=== PATIENT | female | born 1990 | race Caucasian/White ===

== ENCOUNTER 2022-05-29 17:52 | Emergency (ER) | payer MEDICAID, SELFPAY ==
--- NOTE | 2022-05-29 | ECG_ITS ---
Test Reason : SOB Blood Pressure : / mmHG Vent. Rate : 093 BPM Atrial Rate : 093 BPM P-R Int : 150 ms QRS Dur : 078 ms QT Int : 380 ms P-R-T Axes : 025 020 001 degrees QTc Int : 472 ms Normal sinus rhythm Normal ECG No previous ECGs available Referred By: Generic ED Physician Electronically Signed By:MARLENE FOREMAN
--- NOTE | ~2022-05-29 | XR_ITS ---
EXAMINATION: XR CHEST CLINICAL INFORMATION: Shortness of breath COMPARISON: None TECHNIQUE: Frontal view of the chest was obtained. FINDINGS: No significant abnormality is noted involving the heart, lungs, mediastinum, bony thorax or soft tissues. XR/XR chest 1V IMPRESSION: Unremarkable examination.
[2022-05-29 18:01] VITALS: BP 180/124; PULSE 114; RESP 18; TEMP 37; O2SAT 97; BMI 42.1
[2022-05-29 20:29] LABS: MANUAL DIFF FLAG NO
[2022-05-29 20:30] LABS: Basophils Absolute Auto 0.1 X10*3/uL (0.0-0.2); Basophils Percent Auto 0.4 % (0-2); Eosinophils Absolute Auto 0.4 X10*3/uL (0.0-0.4); Hematocrit 42.9 % (37.0-47.0); Hemoglobin 15.3 g/dl (12.0-16.0); Imm Gran Abs Auto 0.09 X10*3/uL (0.00-0.03); Imm Gran Pct Auto 0.5 % (0.0-0.4); Lymphocytes Absolute Auto 3.3 X10*3/uL (1.2-4.9); Mean Corpuscular HGB Conc 35.7 g/dl (31.0-35.0); Mean Corpuscular Hemoglobin 30.8 pg (27.0-33.0); Mean Corpuscular Volume 86.3 fL (80.0-98.0); Mean Platelet Volume 8.6 fL (9.4-12.3); Monocytes Absolute Auto 1.2 X10*3/uL (0.1-1.2); Monocytes Percent Auto 6.6 % (2-11); Neutrophils Absolute Auto 13.2 x10*3/uL (2.0-8.3); Neutrophils Percent Auto 72.5 % (45-73); Platelet Count 452 X10*3/uL (160-400); Red Blood Count 4.97 X10*6/uL (4.20-5.50); Red Cell Distribution Width 13.6 % (11.0-16.0); White Blood Count 18.2 X10*3/uL (4.8-10.8)
[2022-05-29 20:55] LABS: Alanine Aminotransferase 27 U/L (0-31); Albumin Level 4.3 g/dL (3.5-5.0); Alkaline Phosphatase 134 U/L (39-117); Anion Gap 13 (12-20); Aspartate Amino Transferase 16 U/L (5-31); Bilirubin Total 0.3 mg/dL (0.0-1.0); Blood Urea Nitrogen 9 mg/dL (9-16); Calcium 9.7 mg/dL (8.4-10.2); Carbon Dioxide 27 mmol/L (22-29); Chloride 105 mmol/L (96-108); Creatinine Clr Calc Pharmacy 99.2; Estimated Glomerular Filt Rate > 60; Glucose Random 100 mg/dL (60-115); Lipase 124 U/L (8-78); Potassium 3.4 mmol/L (3.3-5.1); Sodium 142 mmol/L (135-145); Total Protein 7.6 g/dL (6.5-8.0)
[2022-05-29 21:09] LABS: Influenza A PCR NEGATIVE (Negative); Influenza B PCR NEGATIVE (Negative); Resp Syncy Virus RNA Qual PCR NEGATIVE (Negative); SARS COV2 PCR INHOUSE NEGATIVE (Negative)
--- NOTE | 2022-05-29 22:16 | ED.URI ---
HPI - URI/Sore Throat General Chief Complaint: Upper Respiratory Symptoms Stated Complaint: respritory issues/high BP Time Seen by Provider: 05/29/22 17:59 Source: patient Mode of arrival: ambulatory Limitations: no limitations History of Present Illness HPI Narrative: 32-year-old female who presents emergency department for evaluation of headache, dizziness, cough, chest pain, shortness of breath, nausea and vomiting x4 days. Patient was initially seen at the [facility] and referred to the emergency department for evaluation. The patient states she has been sick for 4 days. She states she has a cough which is persistent and productive of thick green sputum. She states that she is experiencing chest pain. She points to her mid sternum when asked to localize the pain. The pain is present with coughing only and is a sharp pain which is 10/10. She also feels short of breath and has short this of breath with exertion. She states that she can also hear herself wheezing and she does not have asthma. Patient states that she has had persistent nausea and has had emesis 2 times per day with past 4 days. Patient is also complaining of a headache. She points to her temporal and frontal area as well as the top of her head when asked to localize the headache. She states the headache is been constant for 4 days, the headache is sharp and is 10/10. The headache is worse with coughing. Patient does have a history of hypertension states she is compliant with her hydrochlorothiazide. She states she is not check her blood pressure on a regular basis. Review of systems positive for chills, nasal congestion, diaphoresis. MD elicited complaint: cough Onset (ago): day(s) (4) Consistency: constant and progressively worsening Severity: moderate Description of mucous: green (Thick) Able to tolerate fluids by mouth: Yes Exacerbating factors: deep breaths Relieving factors: nothing Associated symptoms: chills, diaphoresis, headache, nasal congestion, chest pain, shortness of breath, nausea, vomiting and diarrhea Treatments prior to arrival: none Related Data Previous Rx's Medication Instructions Recorded albuterol sulfate 90 mcg/actuation 2 puff inhalation Q4-6H PRN 05/30/22 aerosol inhaler (ProAir HFA) shortness of breath or wheezing #8.5 grams azithromycin 250 mg tablet See Rx Instructions PO .COMPLEX #6 05/30/22 (Zithromax Z-Alex) tabs lisinopril 10 mg tablet 10 mg PO DAILY 30 days #30 tabs 05/30/22 metoclopramide HCl 10 mg tablet 10 mg PO Q6H PRN nausea and 05/30/22 (Reglan) vomiting #14 tabs prednisone 20 mg tablet 60 mg PO DAILY 5 days #15 tabs 05/30/22 Allergies Allergy/AdvReac Type Severity Reaction Status Date / Time No Known Allergies [NKA] Allergy Mild NOT Verified 05/29/22 18:00 APPLICABLE Review of Systems Review of Systems: Yes all other systems are reviewed and are negative [facility] Past Medical History [facility] Narrative: Past medical history: Hypertension, seasonal allergies, GERD, depression. Social history: Patient denies tobacco use. She occasionally drinks alcohol. She smokes marijuana 3 times a week. Social History Social History Advance Directives: No Advance Directives Information Provided: No Physical Exam Vital Signs: Vital Signs: Last Vital Signs Temp 98.6 F 05/29/22 18:01 Pulse 90 05/29/22 23:58 Resp 18 05/29/22 23:58 BP 163/92 H 05/29/22 23:58 Pulse Ox 97 05/29/22 23:58 O2 Del Method 05/29/22 23:58 BMI result Body Mass Index 42.1 Const: Other: Awake, alert, female patient, very pleasant and cooperative, she does have a very persistent productive sounding cough, she is able answer all questions in full sentences without any difficulty, she has an elevated BMI of 42.2. HEENT: Head: Yes normal to inspection, Yes normocephalic and Yes atraumatic Ears: external ears normal General nose exam: Normal external nose present Face and sinus: Yes normal facial exam Mouth: Normal oral and palatal mucosa present Throat: Yes posterior oropharynx normal Eyes: General: appearance normal, both eyes and all related structures Pupils: Equal, round and reactive pupils present Neck: Neck: Yes normal visual inspection, Yes no lymphadenopathy, Yes trachea midline and Yes supple Chest: Chest palpation & inspection: normal inspection of the chest and tenderness sternum Resp: Other: Patient has normal respiratory rate, she has diffuse wheezing, no rales or rhonchi, breath sounds are symmetric bilaterally Cardio: Rate: regular rate Rhythm: regular rhythm Heart sounds: S1 normal heart sound present, S2 normal heart sound present and no murmurs GI: Inspection: Yes normal to inspection Palpation (GI): Soft to palpation, nontender and no guarding Auscultation: normal bowel sounds : General: Yes no CVA tenderness Back/Spine/Pelvis: Back: no CVA tenderness Skin: General skin exam: no rashes or lesions noted Neuro: Cranial nerves: Yes CN's II-XII intact bilaterally and Yes Equal, round and reactive pupils present Cognition (Neuro): normal cognition Motor exam (neuro): 5/5 motor strength present throughout Extrem: General: Yes normal to inspection Psych: Appearance: grossly normal Speech and movement: Normal speech and movement present Affect: normal affect Attitude: cooperative Thought process: Normal thought process present Thought content: Normal thought content present Course Course Course Narrative: 32-year-old female who presents emergency department for evaluation chills, nasal congestion, persistent cough, nausea, vomiting, diarrhea, chest pain and headache x4 days. Patient's vital signs did reveal an elevated blood pressure of 180/124 and elevated pulse of 114. Physical examination did revealed sternal chest wall tenderness, wheezing on her lung exam, normal neurologic exam. Patient had a laboratory evaluation [place] [address], elevated alk-phos 135 an elevated lipase of 124. Chest x-ray revealed no evidence for pneumonia. I did add a troponin and EKG to the patient's evaluation. My impression is that the patient has an acute upper respiratory infection/bronchitis causing her wheezing and her other symptoms. The patient does have an elevated blood pressure but I think that this is consistent with her essential hypertension I do not think that she has hypertensive urgency/emergency. I will treat the patient's headache and other symptoms with Toradol 15 mg IV, Reglan 10 mg IV and Benadryl 50 mg IV. She was also ordered to get normal saline x1 L. 0047: Patient's COVID-19, influenza and RSV tests were negative. The patient is feeling significantly better after the above treatment. Patient will be treated for bronchitis with bronchospasm with prednisone 60 mg once a day for 5 days and Zithromax Z-Alex. She was also advised to use the albuterol inhaler 2 puffs every 4-6 hours as needed for wheezing. Patient was also given prescription for Reglan 10 mg to be taken with Benadryl and Excedrin migraine every 6 hours as needed. MDM - URI/Sore Throat Lab Data Result diagrams: 05/29/22 20:20 05/29/22 20:20 Labs: Lab Results 05/29/22 05/29/22 05/29/22 Range/Units 20:20 20:20 20:20 WBC 18.2 H (4.8-10.8) X10*3/uL RBC 4.97 (4.20-5.50) X10*6/uL Hgb 15.3 (12.0-16.0) g/dl Hct 42.9 (37.0-47.0) % MCV 86.3 (80.0-98.0) fL MCH 30.8 (27.0-33.0) pg MCHC 35.7 H (31.0-35.0) g/dl RDW 13.6 (11.0-16.0) % Plt Count 452 H (160-400) X10*3/uL MPV 8.6 L (9.4-12.3) fL Immature Gran % (Auto) 0.5 H (0.0-0.4) % Neut % (Auto) 72.5 (45-73) % Lymph % (Auto) 18.0 L (20-40) % [place] % (Auto) 6.6 (2-11) % Eos % (Auto) 2.0 (0-4) % Baso % (Auto) 0.4 (0-2) % Lymph # (Auto) 3.3 (1.2-4.9) X10*3/uL [place] # (Auto) 1.2 (0.1-1.2) X10*3/uL Eos # (Auto) 0.4 (0.0-0.4) X10*3/uL Baso # (Auto) 0.1 (0.0-0.2) X10*3/uL Abs Immat Gran (auto) 0.09 H (0.00-0.03) X10*3/uL Absolute Neuts (auto) 13.2 H (2.0-8.3) x10*3/uL Absolute Nucleated RBC 0.000 (0.0-0.012) X10*3/uL Nucleated RBC % (auto) 0.0 (0.0-0.2) /100WBC Sodium 142 (135-145) mmol/L Potassium 3.4 (3.3-5.1) mmol/L Chloride 105 (96-108) mmol/L Carbon Dioxide 27 (22-29) mmol/L Anion Gap 13 (12-20) BUN 9 (9-16) mg/dL Creatinine 0.88 (0.5-1.4) mg/dL Estim Creat Clear Calc 99.2 Estimated GFR > 60 Random Glucose 100 (60-115) mg/dL Calcium 9.7 (8.4-10.2) mg/dL Magnesium 2.0 (1.6-2.6) mg/dL Total Bilirubin 0.3 (0.0-1.0) mg/dL AST 16 (5-31) U/L ALT 27 (0-31) U/L Alkaline Phosphatase 134 H (39-117) U/L Troponin I High Sens (<3.5-17.0) ng/L Total Protein 7.6 (6.5-8.0) g/dL Albumin 4.3 (3.5-5.0) g/dL Lipase 124 H (8-78) U/L Influenza Type A (PCR) NEGATIVE (Negative) Influenza Type B (PCR) NEGATIVE (Negative) RSV RNA Qual (PCR) NEGATIVE (Negative) SARS-CoV-2 RNA (RT-PCR) NEGATIVE (Negative) 05/29/22 Range/Units 20:20 WBC (4.8-10.8) X10*3/uL RBC (4.20-5.50) X10*6/uL Hgb (12.0-16.0) g/dl Hct (37.0-47.0) % MCV (80.0-98.0) fL MCH (27.0-33.0) pg MCHC (31.0-35.0) g/dl RDW (11.0-16.0) % Plt Count (160-400) X10*3/uL MPV (9.4-12.3) fL Immature Gran % (Auto) (0.0-0.4) % Neut % (Auto) (45-73) % Lymph % (Auto) (20-40) % [place] % (Auto) (2-11) % Eos % (Auto) (0-4) % Baso % (Auto) (0-2) % Lymph # (Auto) (1.2-4.9) X10*3/uL [place] # (Auto) (0.1-1.2) X10*3/uL Eos # (Auto) (0.0-0.4) X10*3/uL Baso # (Auto) (0.0-0.2) X10*3/uL Abs Immat Gran (auto) (0.00-0.03) X10*3/uL Absolute Neuts (auto) (2.0-8.3) x10*3/uL Absolute Nucleated RBC (0.0-0.012) X10*3/uL Nucleated RBC % (auto) (0.0-0.2) /100WBC Sodium (135-145) mmol/L Potassium (3.3-5.1) mmol/L Chloride (96-108) mmol/L Carbon Dioxide (22-29) mmol/L Anion Gap (12-20) BUN (9-16) mg/dL Creatinine (0.5-1.4) mg/dL Estim Creat Clear Calc Estimated GFR Random Glucose (60-115) mg/dL Calcium (8.4-10.2) mg/dL Magnesium (1.6-2.6) mg/dL Total Bilirubin (0.0-1.0) mg/dL AST (5-31) U/L ALT (0-31) U/L Alkaline Phosphatase (39-117) U/L Troponin I High Sens < 3.5 (<3.5-17.0) ng/L Total Protein (6.5-8.0) g/dL Albumin (3.5-5.0) g/dL Lipase (8-78) U/L Influenza Type A (PCR) (Negative) Influenza Type B (PCR) (Negative) RSV RNA Qual (PCR) (Negative) SARS-CoV-2 RNA (RT-PCR) (Negative) Discharge Plan Discharge Clinical Impression: Acute bronchitis with bronchospasm, Essential hypertension Headache Qualifiers: Headache chronicity pattern: acute headache Intractability: not intractable Patient Disposition: Home, Self-Care Instructions: Acute Bronchitis (ED) Additional Instructions: Your laboratory evaluation did reveal an elevated white blood cell count otherwise was unremarkable. Your chest x-ray revealed no evidence of pneumonia Your COVID-19, influenza and RSV tests were all negative. Your presentation is consistent with infection/inflammation of your breathing to and spasm of your breathing tubes (bronchitis with bronchospasm) Medications for bronchitis and headache Take prednisone 20 mg pills, 3 pills once a day for 5 days. While you are taking prednisone, do not take any NSAIDs (Motrin, Advil, ibuprofen, Aleve, naproxen). Take Zithromax (azithromycin) Z-Alex as prescribed. Day 1 take 2 pills, each day after that take 1 pill for total of 5 days. This medication states in your system for 7-10 days and continues to work despite only taking it for 5 days. Use the albuterol inhaler, 2 puffs every 4-6 hours as needed for shortness of breath and wheezing. I want you to take the following 3 medications together every 6 hours as needed for headache, nausea or vomiting. Reglan (metoclopramide) in 10 mg, 1 pill Benadryl 25 mg, 2 pills Excedrin migraine, 1pill. After you take these medications, lie down in a dark quiet room and try to fall asleep. These medications will make you sleepy, do not drive or work after taking these medications. Follow-up with your doctor in 2 days. High blood pressure instructions: Your blood pressure in the emergency room today was high at 184/124 and 163/92. Continue taking your hydrochlorothiazide. Start lisinopril 10 mg once a day The reason to check your blood pressure at home is to give your doctor an idea of what your blood pressure does when you are not in the doctor's office. Take your blood pressure in the mornings, Mondays , Wednesdays and Fridays and then write down these readings to discuss them with your doctor at your next visit. It often 1-2 months or longer to get your blood pressure under control. The goal is to get your blood pressure under control over the rest of your life to prevent increased risk of heart disease, stroke and kidney failure. Follow-up with your doctor to discuss your blood pressure readings in 2 weeks Follow-up instructions: Follow-up with your doctor in 2 days. Please return to the emergency department if your symptoms get worse or if you develop any symptoms that are concerning to you. Please see the work note Prescriptions: New azithromycin [Zithromax Z-Alex] 250 mg tablet See Rx Instructions .ROUTE .COMPLEX Qty: 6 0RF Rx Instructions: take 500 mg today (day 1), then 250 mg for 4 days (days 2-5) prednisone 20 mg tablet 60 mg PO DAILY 5 Days Qty: 15 0RF metoclopramide HCl [Reglan] 10 mg tablet 10 mg PO Q6H PRN (Reason: nausea and vomiting) Qty: 14 0RF lisinopril 10 mg tablet 10 mg PO DAILY 30 Days Qty: 30 0RF albuterol sulfate [ProAir HFA] 90 mcg/actuation HFA aerosol inhaler 2 puff inhalation Q4-6H PRN (Reason: shortness of breath or wheezing) Qty: 8.5 0RF Stand Alone Forms: Work/School Release
[2022-05-29] MEDS: 0.9 % Sodium Chloride 1,000 ML 999 ML IV (22:36)
[2022-05-29] MEDS: Metoclopramide HCl 10 MG/2 ML VIAL IVPUSH (22:36)
[2022-05-29] MEDS: Ketorolac Tromethamine 15 MG/ML VIAL IVPUSH (22:36)
[2022-05-29] MEDS: diphenhydrAMINE HCL 50 MG/ML VIAL IVPUSH (22:36)
[2022-05-29] MEDS: Albuterol Sulfate 90 MCG 8 GM INHALER 4 PUFF INHALE (22:36)
[2022-05-29 23:58] VITALS: BP 163/92; PULSE 90; RESP 18; O2SAT 97
[2022-05-30 00:06] LABS: Troponin-I High Sensitivity < 3.5 ng/L (<3.5-17.0)
[2022-05-30] MEDS: Azithromycin 500 MG TABLET PO (01:15)
[2022-05-30] MEDS: predniSONE 20 MG TABLET 60 MG PO (01:15)
== END 2022-05-30 01:23 | disposition home or self-care (01) ==
PROVIDERS: Physician Assistant; Emergency Provider Emergency Medicine Emergency Medical Services
DX: J20.9 Acute bronchitis, unspecified (principal); I10 Essential (primary) hypertension; R51.9 Headache, unspecified; Z20.822 Contact with and (suspected) exposure to COVID-19; Z79.899 Other long term (current) drug therapy
CPT/HCPCS: 0241U; 36415; 71045; 80053; 83690; 83735; 84484; 85025; 93005; 96361; 96374; 96375; 99284; J1200; J1885; J2765

== ENCOUNTER 2025-06-21 11:33 | Outpatient (REF) | payer MEDICAID, SELFPAY ==
--- OUTSIDE RECORDS SUMMARY | 2025-06-21 13:07 | XMS_ITS | Encounter Summary ---
Author Organization [facility] [employer] Address [address] [place] [address] [place] [address] Care Team Providers Care Mold Mover Name Role Phone Helio Bazan MD Primary Care Prov ider Reason for Visit * Reason Comments Med Refill Encounter Details Date Type Department Care Team (Late Contact Info) Description 09/14/2023 Refill [facility] [address] [place] [address] Concha Souza MD [address] [place] [address] GERD without esophagitis Social History Tobacco Use Types Packs/Day Years Used Date Smoking Tobacco: Former Cigarettes Passive Smoke Exposure: Past Smokeless Tobacco: Never Comments Unknown Sex and Gender Information Value Date Recorded Sex Assigned at Female 09/02/2022 10:14 AM EDT Legal Sex Female 10:14 AM EDT Gender Identity Female 09/02/2022 10:14 AM EDT Sexual Orientation Straight 09/02/2022 10 :14 AM EDT documented as of this encounter Plan of Treatment Upcoming Encounters Date Type Department Care Team (Late Contact Info) Description 06/29/2025 8:30 AM EDT Office Visit [facility] [address] [place] [address] Gerry Ferrari [address] [place] [address] 07/05/2025 1:00 PM EDT Clinical Support [facility] [address] [place] [address] 07/20/2025 11:15 AM EDT Telemedicine [facility] [address] [place] [address] Helio Bazan MD [address] [place] [address] documented as of this encounter Visit Diagnoses Diagnosis GERD without esophagitis Esophageal reflux documented in this encounter Care Teams Mold Mover Relationship Specialty Start Date End Date Helio Bazan MD [address] [place] [address] PCP - General Internal Medicine 05/12/24 documented as of this encounter
--- OUTSIDE RECORDS SUMMARY | 2025-06-21 13:07 | XMS_ITS ---
Author Name [facility] Organization Unknown Care Team Organization Name Specialty Phone Email Start Date End Da te [facility] Nila Bridges Primary [facility] 09/10/20222023
--- OUTSIDE RECORDS SUMMARY | 2025-06-21 13:08 | XMS_ITS | Clinical Summary ---
Author Organization [facility] it Address [address] [place] [address] Care Team Providers Care Physical Therapy Attendant Name Role Phone Anurag Arenas MD Primary Care Provider Allergies Active Allergy Reactions Criticality Noted Date Comments Escitalopram Oxalate 05/16/2022 Patient felt as if she was vibrating , sweating, tearing, muscle aches. Other 04/12/2022 Seasonal Medications hydroCHLOROthia zide (HYDRODIURIL) 25 mg tablet Take 1 tablet (25 mg total) by mouth 1 (one) time each day. 2 Active buPROPion SR (WELLBUTRIN SR) 150 mg 12 hr tablet Take 1 tablet (150 mg total) by mouth 2 (two) times a day. 2 Active FLUoxetine (PROzac) 10 mg capsule Take 1 capsule (10 mg total) by mouth 1 (one) time each day. 2 Active hydrOXYzine HCL (ATARAX) 25 mg tablet Take 1 tablet (25 mg total) by mouth 3 (three) times a day if needed. 2 Active betamethasone, augmented, (DIPROLENE-AF) 0.05 % cream Apply to eczematous patches bid as needed 0 Active Active Problems Problem Noted Date Diagnosed Date Subclinical hyperthyroidism 05/24/2019 Anxiety 05/19/2019 Depression 05/19/2019 Elevated blood pressure reading 05/19/2019 Gastroesophageal reflux disease without esophagi tis 05/19/2019 Overweight 05/19/2019 Dyslipidemia 08/28/2015 Headache 08/28/2015 MDD (major depressive disorder) 08/28/2015 Immunizations Name Administration Dates Next Due DTaP (Infanrix) 6wks to less than 7yo ,11/03/1992,07/04/1991,1989,1989 [id number] (Pentacel) 2mo to less than 5yo 11/03/1992 Hepatitis B Pediatric (Enger ix B; Recombivax HB) to less than 20 yo 01/02/1998,12/04/1995,09/03/1995 Influenza, Unspecified 09/13/2021 MMR, measles mumps and rubel la Live (Priorix; M-M-R II) 12mo and older 10/05/2001 OPV 12/04/1993,,04/03/1991,1988 Td Tetanus diptheria (Tdvax) 7yo and older 10/04/2001 Tdap Tetanus diptheria acell ular pertussis (Boostrix; Adacel) 7yo and older 05/19/2019 Surgical History Surgery Date Site/Laterality Comments SECTION 2007 PROCEDURE: HISTORICAL DELIVERY HAND SURGERY 1998 Left PROCEDURE: HISTORICAL HAND SURGERY; COMMENT: tendon repair OTHER SURGICAL HISTORY 12/26/11 PROCEDURE: OUTSIDE PAP SMEAR Medical History Medical History Date Comments MDD (major depressive disorder) 08/28/2015 DX:MDD (major depressive disorder) Headache 08/28/2015 DX:Headache Dyslipidemia 08/28/2015 DX:Dyslipidemia Anxiety DX:Anxiety GERD (gastroesophageal reflux disease) DX:GERD (gastroesophageal reflux disease) Family History Medical History Relation Name Comments Hyperlipidemia Brother kidney failur e (congenital?), seizure disorder Diabetes Maternal Grandmother HIV; se izure; stroke, heart disease Other: seizure disorder Mother Breast cancer Other 1 maternal aunt in 30s Breast cancer Other 2 maternal cousi n in late 20s Other: abnormal pap Other 3 sister a t age 23 Cervical cancer Other 4 sister at ag e 28 Relation Name Status Comments Brother Maternal Grandmother Mother Alive Other 1 Other 2 Other 3 Other 4 Social History Tobacco Use Types Packs/Day Years Used Date Smoking Tobacco: Every Day Cigarettes Smokeless Tobacco: Never Alcohol Use Standard Drinks/Week Comments Yes 0 (1 standard drink = 0.6 oz pur e alcohol) Comments Unknown Sex and Gender Information Value Date Recorded Sex Assigned at Not on file Legal Sex Female 9:02 AM EST Gender Identity Not on file Sexual Orientation Not on file Obstetrics History Last Filed Vital Signs Vital Sign Reading Time Taken Comments Blood Pressure 132/80 04/12/2022 2:13 PM EDT Pulse 92 04/12/2022 2:13 PM EDT Temperature - - Respiratory Rate - - Oxygen Saturation - - Inhaled Oxygen Concentration - - Weight 101 kg (223 lb) 04/12/2022 2:13 PM EDT Height 157.5 cm (5' 2 ) 04/12/2022 2:13 PM EDT Body Mass Index 40.79 04/12/2022 2:13 PM EDT Plan of Treatment Health Maintenance Due Date Last Done Comments Pneumococcal Vaccine: Pediatrics (0 to 5 Years) and At-Risk Patients (6 to 49 Years) (1 of 2 - PCV) 02/01/2008 Cervical Cancer Screening: Pap Smear 2010 HIV Screening 10/06/2022 Hepatitis C Screening 10/06/2022 Social Influencers of Health Screening 10/06/2022 COVID-19 Vaccine ( season) 2024 05/03/2021 Depression Screening 11/03/2024 Influenza Vaccine (#1) 2025 09/13/2021 DTaP,Tdap,and Td Vaccines (8 - Td or Tdap) 05/19/2029 05/19/2019, 10/04/2001, 12/04/1993, Additional history exists HIB Vaccines Completed 11/03/1992 IPV Vaccines Completed 12/04/1993, 11/1992, 07/04/1991, Additional history exists Hepatitis B Vaccines Completed 01/02/1998, 12/04/1995, 09/03/1995 MMR Vaccines Completed 10/05/2001 HPV Vaccines Aged Out No longer eligi ble based on patient's age to complete this topic Hepatitis A Vaccines Aged Out No long er eligible based on patient's age to complete this topic Meningococcal ACWY Vaccine Aged Out N o longer eligible based on patient's age to complete this topic Meningococcal B Vaccine Aged Out No l onger eligible based on patient's age to complete this topic RSV Immunization Patients Under 20 months Aged Out No longer eligible based on patient's age to complete this topic Varicella Vaccines Aged Out No longer eligible based on patient's age to complete this topic Care Teams Physical Therapy Attendant Relationship Specialty Start Date End Date Anurag Arenas MD [address] [place] [address] PCP - General Internal Medicine 03/26/22
[2025-06-21 13:12] LABS: MANUAL DIFF FLAG NO
[2025-06-21 13:31] LABS: Hematocrit 39.5 % (37.0-47.0); Hemoglobin 13.2 g/dl (12.0-16.0); Imm Gran Abs Auto 0.07 X10*3/uL (0.00-0.03); Imm Gran Pct Auto 0.4 % (0.0-0.4); Lymphocytes Absolute Auto 3.2 X10*3/uL (1.2-4.9); Mean Corpuscular HGB Conc 33.4 g/dl (31.0-35.0); Mean Corpuscular Hemoglobin 27.7 pg (27.0-33.0); Mean Corpuscular Volume 83.0 fL (80.0-98.0); NRBC Abs Auto 0.000 X10*3/uL (0.0-0.012); NRBC Pct Auto 0.0 /100WBC (0.0-0.2); Platelet Count 513 X10*3/uL (160-400); Red Blood Count 4.76 X10*6/uL (4.20-5.50); White Blood Count 17.0 X10*3/uL (4.8-10.8)
[2025-06-21 13:46] LABS: Alanine Aminotransferase 18 U/L (0-31); Albumin Level 4.3 g/dL (3.5-5.0); Alkaline Phosphatase 110 U/L (39-117); Anion Gap 12 (12-20); Aspartate Amino Transferase 24 U/L (5-31); Blood Urea Nitrogen 8 mg/dL (9-16); Calcium 9.3 mg/dL (8.4-10.2); Carbon Dioxide 25 mmol/L (22-29); Chloride 106 mmol/L (96-108); Cholesterol 205 mg/dL (<200); Estimated Glomerular Filt Rate > 60; HDL Cholesterol 35 mg/dL (>40); Potassium 3.5 mmol/L (3.3-5.1); Sodium 139 mmol/L (135-145); Total Protein 7.5 g/dL (6.5-8.0); Triglycerides 245 mg/dL (<150)
[2025-06-21 14:37] LABS: Free T4 (Free Thyroxine) 0.93 ng/dL (0.71-1.85)
[2025-06-22 08:53] LABS: HIV Num 1 0.06 S/CO (0.00-0.99); ~HepC Num1 0.12 S/CO (0.00-0.79); ~Hepatitis C Antibody Nonreactive (Nonreactive)
== END 2025-06-21 11:34 | disposition home or self-care (01) ==
LOC: HO.HHCL 11:33
PROVIDERS: PCP Internal Medicine; Visit Provider Internal Medicine
DX: I10 Essential (primary) hypertension (principal); Z11.4 Encounter for screening for human immunodeficiency virus [HIV]; Z11.59 Encounter for screening for other viral diseases
CPT/HCPCS: 36415; 80053; 80061; 84439; 84443; 85025; 86803; 87389